=== PATIENT | female | born 1970 | race African-American/Black ===

== ENCOUNTER 2024-03-19 14:32 | Emergency (ER) | payer OTHER, SELFPAY ==
--- NOTE | ~2024-03-19 | CT_ITS ---
EXAMINATION: CT HEAD WITHOUT CONTRAST CT CERVICAL SPINE WITHOUT CONTRAST CLINICAL INFORMATION: Head injury, pain COMPARISON: None TECHNIQUE: Contiguous axial imaging was performed from the skull base to vertex without intravenous administration of contrast. Contiguous axial imaging was performed from the upper chest through the skull base without intravenous administration of contrast. Coronal and sagittal reformats were obtained at the acquisition workstation. This CT examination was performed using dose optimization techniques as appropriate, variously including the following: *Automated exposure control *Adjustment of mA and/or kV according to patient size (this includes techniques or standardized protocols for targeted exams where dose is matched to indication/reason for exam; i.e. extremities or head) *Use of iterative reconstruction technique DLP: 764 mGy-cm FINDINGS: Head: There is no evidence of acute intracranial hemorrhage or edematous territorial infarction. Hernandez-white matter differentiation appears preserved. The ventricles and cortical sulci are proportional with mild volume loss. Cavum septum pellucidum and vergae. There is no mass effect or midline shift. No acute extra-axial collections. Few scattered hypodensities in the subcortical white matter likely representing mild chronic microangiopathy changes. Dense dural ossifications along the anterior falx. Mild diffuse calvarial thickening. No acute soft tissue or osseous abnormalities. The mastoid air cells and visualized paranasal sinuses are clear. Cervical Spine: Incidental note of bilateral cervical ribs. Lucencies involving the left cervical rib with disruption of the cortex likely suggesting minimally displaced left cervical rib fracture, 15:16 The atlantooccipital and atlantoaxial articulations remain well aligned. Degenerative changes at the atlantodental articulations. Straightening of the normal cervical lordosis. Otherwise, there is anatomic alignment of the vertebral bodies and posterior elements. No evidence of acute cervical spine fracture or subluxation. The vertebral body heights and disc spaces are maintained. Small endplate osteophytes at C5-C6 and C6-C7. There is no prevertebral soft tissue swelling. The thyroid gland and remaining cervical soft tissues are within normal limits. The lung apices demonstrate no abnormalities. CT/CT cervical spine wo IV con IMPRESSION: 1. No acute intracranial pathology. 2. No acute fracture or traumatic subluxation involving the cervical spine. Mild degenerative changes. 3. Incidental note of bilateral cervical ribs. Lucencies involving the left cervical rib with disruption of the cortex likely suggesting minimally displaced left cervical rib fracture. Electronically signed by: Fausto Achanaril MD 03/19/2024 04:54 PM EST RP
--- NOTE | ~2024-03-19 | XR_ITS ---
EXAMINATION: XR CHEST CLINICAL INFORMATION: pain, injury COMPARISON: Chest radiograph 10/20/2012 TECHNIQUE: PA and lateral views of the chest were obtained. FINDINGS: The lungs are well expanded. No focal consolidation, effusion, edema, or pneumothorax. The cardiomediastinal silhouette is within normal limits for technique and unchanged. No acute osseous abnormality. XR/XR chest 2V IMPRESSION: No acute pulmonary disease. No significant interval change compared to 10/20/2012. Electronically signed by: Caroline Higgins DO 03/19/2024 04:42 PM EST
--- NOTE | ~2024-03-19 | CT_ITS ---
EXAMINATION: CT ANGIOGRAM HEAD CT ANGIOGRAM NECK CLINICAL INFORMATION: Neck trauma. COMPARISON: CT head and cervical spine from 03/19/2024. TECHNIQUE: Initial noncontrast cultural historian imaging of the head and neck was performed. Comparison is made with noncontrast head CT from earlier today. Test bolus sequences followed by intravenous administration 70 mL of Omnipaque 350. Helical imaging was performed in the axial plane from the aortic arch to the skull vertex. Delayed postcontrast imaging of the head was also performed. The data was processed at the instrumentation technologist's workstation for generation of MIP sequences. Angled MIPs and volume rendered reformatted images were also generated at an offline 3D workstation. Stenoses are assessed in accordance with NASCET criteria unless otherwise indicated. This CT examination was performed using dose optimization techniques as appropriate, variously including the following: *Automated exposure control. *Adjustment of mA and/or kV according to patient size (this includes techniques or standardized protocols for targeted exams where dose is matched to indication/reason for exam; i.e. extremities or head). *Use of iterative reconstruction technique. DLP: 1731 mGy-cm FINDINGS: CT Head: There is no evidence of acute intracranial hemorrhage or edematous territorial infarction. Hernandez-white matter differentiation is preserved. A few foci of hypoattenuation in the periventricular and deep white matter most commonly seen with mild microangiopathy. Persistent cavums septum pellucidum, vergae, veli interpositi with cyst formation, measuring up to 1.4 cm in diameter. Proportional prominence of the ventricles and sulcal spaces without evidence of obstructive hydrocephalus. No abnormal mass effect or midline shift. No extra-axial fluid collections. No pathologic intra-axial enhancement or regional oligemia. No acute soft tissue or osseous abnormalities. Mild mucosal thickening of the paranasal sinuses. The mastoid air cells and middle ear cavities are clear. The patient is edentulous. CT Neck: The thyroid gland and remaining cervical soft tissues are within normal limits. Straightening of the normal cervical lordosis. Moderate degenerative arthropathy of the atlantodental articulation. Mild degenerative disc disease from C5-C7. CT Upper Chest: Right-sided cervical rib. The visualized lung apices and upper mediastinum are within normal limits. Neck CTA: Aortic Arch: Normal contour and caliber. Classic 3 vessel branching pattern of the aortic arch. Great Vessel Origins: No significant stenosis of the branch origins. Right Common Carotid Artery: No focal stenosis or occlusion. Cervical Right Internal Carotid Artery: Normal opacification without focal stenosis or occlusion. Left Common Carotid Artery: No focal stenosis or occlusion. Cervical Left Internal Carotid Artery: Normal opacification without focal stenosis or occlusion. Cervical Right Vertebral Artery: Co-dominant. No focal stenosis or occlusion. Cervical Left Vertebral Artery: Co-dominant. No focal stenosis or occlusion. Brain CTA: Intracranial Internal Carotid Arteries: Calcific atherosclerotic disease of the intracranial internal carotid arteries without occlusion or flow-limiting stenosis. Right Anterior Cerebral Artery: Normal A1 segment. Normal opacification of the distal DONALD segments. Left Anterior Cerebral Artery: Normal A1 segment. 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 Otherwise, normal Opacification of the distal DONALD segments. Anterior Communicating Artery: Normal. Right Middle Cerebral Artery: Normal M1 segment of the MCA without focal stenosis or occlusion. Normal arborization of the distal segments. Left Middle Cerebral Artery: Normal M1 segment of the MCA without focal stenosis or occlusion. Normal arborization of the distal segments. Right Vertebral Artery: Normal V4 segment. Normal opacification of the proximal segments of the posterior inferior cerebellar artery. Left Vertebral Artery: Normal V4 segment. Normal opacification of the proximal segments of the posterior inferior cerebellar artery. Basilar Artery: Fenestration of the proximal basilar artery. Otherwise, normal without focal stenosis or occlusion. Normal appearance of the proximal superior cerebellar arteries. Right Posterior Cerebral Artery: Normal P1 segment. Normal posterior communicating artery. Normal opacification of the distal [employer] segments. Left Posterior Cerebral Artery: Normal P1 segment. Normal posterior communicating artery. Normal opacification of the distal [employer] segments. Normal opacification of the superior sagittal, straight, transverse, and sigmoid sinuses. CT/CT angio head neck IMPRESSION: 1. No evidence of acute intracranial hemorrhage or edematous territorial infarction. Mild underlying microangiopathy and generalized cerebral volume loss. 2. CTA of the head and neck without proximal occlusion or flow-limiting stenosis. No evidence of blunt traumatic vascular injury. Electronically signed by: French Monique DO 03/19/2024 09:44 PM EST
--- NOTE | ~2024-03-19 | XR_ITS ---
EXAMINATION: XR FOOT, LEFT CLINICAL INFORMATION: Pain, injury. COMPARISON: None available. TECHNIQUE: AP, lateral, and oblique views of the left foot. FINDINGS: No acute fracture or dislocation. Mild joint space narrowing and subcortical sclerosis of the first MTP joint. Small dorsal calcaneal spurs. No osseous erosions. No unusual soft tissue calcifications. Mild diffuse nonspecific soft tissue thickening. XR/XR foot LT min 3V IMPRESSION: 1. No acute fracture or malalignment. 2. 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 3. Small calcaneal spurs. 4. Mild diffuse soft tissue thickening. Electronically signed by: Anne-Marie Mart MD 03/19/2024 03:44 PM EST
[2024-03-19 14:37] VITALS: BP 135/79; PULSE 90; RESP 18; TEMP 37; O2SAT 96; BMI 34.0
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
--- NOTE | 2024-03-19 17:09 | PC.NURSE ---
C-Collar placed on patient at this time in triage
[2024-03-19 18:32] LABS: MANUAL DIFF FLAG NO
[2024-03-19 18:33] LABS: Basophils Percent Auto 0.5 % (0-2); Eosinophils Absolute Auto 0.6 X10*3/uL (0.0-0.4); Eosinophils Percent Auto 7.1 % (0-4); Hematocrit 37.7 % (37.0-47.0); Hemoglobin 13.2 g/dl (12.0-16.0); Imm Gran Abs Auto 0.04 X10*3/uL (0.00-0.03); Imm Gran Pct Auto 0.5 % (0.0-0.4); Lymphocytes Absolute Auto 2.6 X10*3/uL (1.2-4.9); Lymphocytes Percent Auto 30.2 % (20-40); Mean Corpuscular Hemoglobin 29.2 pg (27.0-33.0); Mean Corpuscular Volume 83.4 fL (80.0-98.0); Mean Platelet Volume 9.1 fL (9.4-12.3); Monocytes Absolute Auto 0.7 X10*3/uL (0.1-1.2); Monocytes Percent Auto 7.8 % (2-11); Neutrophils Absolute Auto 4.6 x10*3/uL (2.0-8.3); Neutrophils Percent Auto 53.9 % (45-73); Platelet Count 310 X10*3/uL (160-400); Red Blood Count 4.52 X10*6/uL (4.20-5.50); Red Cell Distribution Width 12.3 % (11.0-16.0); White Blood Count 8.5 X10*3/uL (4.8-10.8)
[2024-03-19 18:35] VITALS: BP 136/82; PULSE 88; RESP 18; TEMP 36.9; O2SAT 97
[2024-03-19 19:11] LABS: Alanine Aminotransferase 19 U/L (0-31); Alkaline Phosphatase 92 U/L (39-117); Anion Gap 13 (12-20); Aspartate Amino Transferase 22 U/L (5-31); Bilirubin Total 0.6 mg/dL (0.0-1.0); Blood Urea Nitrogen 12 mg/dL (9-16); Calcium 9.5 mg/dL (8.4-10.2); Carbon Dioxide 25 mmol/L (22-29); Chloride 101 mmol/L (96-108); Creatinine Clr Calc Pharmacy 109.3; Estimated Glomerular Filt Rate > 60; Glucose Random 281 mg/dL (60-115); Magnesium 1.4 mg/dL (1.6-2.6); Potassium 4.1 mmol/L (3.3-5.1); Sodium 135 mmol/L (135-145); Total Protein 7.1 g/dL (6.5-8.0)
[2024-03-19] MEDS: iohexoL 350 MG/ML 100 ML INFUS..BTL 70 ML IV (20:02)
[2024-03-19] MEDS: Magnesium Sulfate/H2O 2 GM/50 ML PIGGYBACK IV (20:06)
[2024-03-19 20:08] VITALS: BP 131/71; PULSE 87; RESP 16; TEMP 36.8; O2SAT 97
--- NOTE | 2024-03-19 21:27 | PC.NURSE ---
critical mg 1.4- 2gm ordered per PA Vickey- pt awaiting CTA results
[2024-03-19 22:34] VITALS: BP 115/61; PULSE 86; RESP 16; TEMP 37.6; O2SAT 98
[2024-03-19] MEDS: Ibuprofen 600 MG TABLET PO (22:49)
[2024-03-19 23:02] VITALS: BP 115/61; PULSE 86; RESP 16; TEMP 37.6; O2SAT 98
== END 2024-03-19 23:03 | disposition home or self-care (01) ==
PROVIDERS: Physician Assistant Medical; Emergency Provider Emergency Medicine; PCP Internal Medicine
DX: S12.9XXA Fracture of neck, unspecified, initial encounter (principal); E83.42 Hypomagnesemia; M79.672 Pain in left foot; R07.89 Other chest pain; R51.9 Headache, unspecified; M54.2 Cervicalgia; V43.52XA Car driver injured in collision with other type car in traffic accident, initial encounter; Y93.89 Activity, other specified; Y92.488 Other paved roadways as the place of occurrence of the external cause; Y99.8 Other external cause status; Z79.899 Other long term (current) drug therapy
CPT/HCPCS: 36415; 70450; 70496; 70498; 71046; 72125; 73630; 80053; 83735; 85025; 96365; 96366; 99284; J3475; Q9967